=== PATIENT | female | born 1995 | race American Indian/Alaskan Native ===

== ENCOUNTER 2017-04-22 16:50 | Emergency (ER) | payer BC, OTHER ==
[2017-04-22 17:20] VITALS: BP 126/84; PULSE 86; RESP 16; TEMP 98.3; O2SAT 100
[2017-04-22] MEDS ORDERED: Amoxicillin-Clav 875-125 mg Tab PO STA (18:41)
[2017-04-22] MEDS ORDERED: TDAP Vaccine 0.5 mL Syr IM ONE (18:41)
--- NOTE | 2017-04-22 20:13 | ED PDOC ---
Arrival/HPI - General Chief Complaint: Bite Time Seen by Provider: 04/22/17 18:41 Historian: Patient - History of Present Illness Narrative History of Present Illness (Text): 04/22/17 19:59 22-year-old female presents today with a laceration to second finger. Patient states at 2 AM in the morning she tried to pet her dog while he was eating and he bit her finger. Patient unsure of last tetanus shot. Complaining of pain to the laceration site. Denies fevers or chills. Denies numbness weakness or tingling in the extremities. No medications taken at home. Patient denies decreased range of motion of the finger. Patient states dog is up-to-date on immunizations Time/Duration: Other (last night 2am) Symptom Onset: Sudden Symptom Course: Improving Quality: Aching Severity Level: 5 Past Medical History - Provider Review Nursing Documentation Reviewed: Yes - Travel History Have you recently traveled outside [place] w/in the past 3 mons?: No - Infectious Disease Hx of Infectious Diseases: None - Tetanus Immunization Tetanus Immunization: Unknown - HEENT Hx Deafness: Yes - Psychiatric Hx Substance Use: No - Surgical History Other/Comment: Right ear surgery. - Suicidal Assessment Feels Threatened In Home Enviroment: No Family/Social History - Physician Review Nursing Documentation Reviewed: Yes Family/Social History: Unknown Family HX Smoking Status: Never Smoked Hx Alcohol Use: No Hx Substance Use: No Allergies/Home Meds Allergies/Adverse Reactions: Allergies No Known Allergies Allergy (Verified 04/22/17 17:20) Review of Systems - Review of Systems Constitutional: absent: Fatigue, Fevers Respiratory: absent: SOB, Cough Cardiovascular: absent: Chest Pain, Palpitations Gastrointestinal: absent: Abdominal Pain, Nausea, Vomiting Genitourinary Female: absent: Dysuria Musculoskeletal: Arthralgias. absent: Back Pain, Neck Pain Skin: Laceration Neurological: absent: Headache, Dizziness Psychiatric: absent: Anxiety, Depression Physical Exam Vital Signs Reviewed: Yes Vital Signs Temp Pulse Resp BP Pulse Ox 04/22/17 17:15 98.3 F 86 16 126/84 100 Temperature: Afebrile Blood Pressure: Normal Pulse: Regular Respiratory Rate: Normal Appearance: Positive for: Well-Appearing, Non-Toxic, Comfortable Pain Distress: None Mental Status: Positive for: Alert and Oriented X 3 - Systems Exam Head: Present: Atraumatic Respiratory/Chest: Present: Clear to Auscultation Cardiovascular: Present: Regular Rate and Rhythm Upper Extremity: Present: Normal ROM, NORMAL PULSES, Tenderness (left 2nd finger ; at distal phalanx along lateral aspect there is a 2cm superficial laceration. no active bleeding; no edema, no erythema; no ecchymosis; full rom of finger. sensation and distal pulses intact. cap refill <2. ), Neurovascularly Intact, Capillary Refill < 2s. No: Swelling, Erythema, Deformity Neurological: Present: GCS=15 Skin: Present: Warm, Dry Psychiatric: Present: Alert, Oriented x 3 Medical Decision Making ED Course and Treatment: 04/22/17 20:23 Patient is nontoxic well-appearing in no distress. Vital signs are stable. Dog is: Up to date on immunizations Tetanus updated Wound irrigated well with copious amounts of high-pressure irrigation using normal saline wound is superficial; non gapping. will allow to heal by secondary intention. Augmentin 875 mg p.o. bacitracin and dressing applied. Patient was advised to keep the wound clean and dry, apply bacitracin twice daily, take antibiotics as prescribed and return immediately if symptoms worsen persist or if new symptoms develop Patient verbalizes understanding of discharge instructions and need for immediate followup. all aspects of this case were discussed the attending of record. Impression: Dog bite, laceration, finger Motrin one tablet every 6 hours as needed for pain Augmentin: Twice daily x10 days Keep the wound clean and dry, apply bacitracin twice daily Return immediately if symptoms worsen persist or if new symptoms develop: High fevers, increasing pain, increasing redness, swelling or if any other concerning symptoms develop. - Medication Orders Current Medication Orders: Discontinued Medications Amoxicillin/Clavulanate Potassium (Augmentin 875 Mg-125 Mg Tab) 1 tab PO STAT STA PRN Reason: Protocol Stop: 04/22/17 18:42 Last Admin: 04/22/17 19:31 Dose: 1 tab Tetanus/Reduced Diphtheria/Acell Pertussis (Boostrix Vaccine Inj) 0.5 ml IM .ONCE ONE Stop: 04/22/17 18:42 Last Admin: 04/22/17 19:29 Dose: 0.5 ml [facility] Immunization Data Document 04/22/17 19:29 DEDE (Rec: 04/22/17 19:29 DEDE [id number]) Immunization Data Vaccine Information Sheet Given No Immunization Registry Document 04/22/17 19:29 SZA (Rec: 04/22/17 19:29 SZA [id number]) Immunization Registry Consent Date 04/22/17 Disposition/Present on Arrival - Present on Arrival Any Indicators Present on Arrival: No History of DVT/PE: No History of Uncontrolled Diabetes: No Urinary Catheter: No History of Decub. Ulcer: No History Surgical Site Infection Following: None - Disposition Have Diagnosis and Disposition been Completed?: Yes Diagnosis: Dog bite, Laceration of finger Disposition: HOME/ ROUTINE Disposition Time: 20:13 Patient Plan: Discharge Condition: GOOD Discharge Instructions (ExitCare): Animal Bite (ED), Laceration (ED) Additional Instructions: Motrin one tablet every 6 hours as needed for pain Augmentin: Twice daily x10 days Keep the wound clean and dry, apply bacitracin twice daily Return immediately if symptoms worsen persist or if new symptoms develop: High fevers, increasing pain, increasing redness, swelling or if any other concerning symptoms develop. Prescriptions: Amoxicillin/Clavulanate [Augmentin 875 MG-125 MG] 1 tab PO BID #20 tab Bacitracin OINT 1 applic TP BID #1 tube Ibuprofen [Motrin] 600 mg PO Q6H PRN #20 tab PRN Reason: pain/fever reduction Referrals: Claire Gaston MD [Staff Provider] - Follow up with primary Gianluca Joaquin MD [Staff Provider] - Follow up with primary Forms: [employer] (Armenian)
== END 2017-04-22 20:27 | disposition home or self-care (01) ==
LOC: ED 16:50
DX: S61.251A Open bite of left index finger without damage to nail, initial encounter (principal); W54.0XXA Bitten by dog, initial encounter; Z23 Encounter for immunization